=== PATIENT | male | born 1955 | race Caucasian/White ===

== ENCOUNTER 2017-12-15 11:02 | Emergency (ER) | payer OTHER | END 2017-12-15 13:41 | disposition home or self-care (01) | LOC: FTE 11:02 | DX: H40.9 Unspecified glaucoma (principal); I10 Essential (primary) hypertension; E11.65 Type 2 diabetes mellitus with hyperglycemia; F17.210 Nicotine dependence, cigarettes, uncomplicated; R51 Headache; Z79.4 Long term (current) use of insulin; Z79.82 Long term (current) use of aspirin | CPT/HCPCS: 70450; 70480; 82962; 99285-25 ==